=== PATIENT | male | born 1975 | race Caucasian/White ===

== ENCOUNTER → 2021-12-30 | Outpatient (CLI) | payer BC ==
--- NOTE | 2021-12-31 08:22 | CT ---
EXAMINATION TYPE: CT chest w con DATE OF EXAM: 12/30/2021 COMPARISON: None available HISTORY: Pleural scarring, former smoker CT DLP: 254 mGycm Automated exposure control for dose reduction was used. TECHNIQUE: CT scan of the chest is performed with IV Contrast, patient injected with 100 mL of Isovue 300. FINDINGS: 3 mm nodule is seen along the anterior-inferior aspect of the right transverse fissure. Unremarkable lungs otherwise with no definite other nodule, lesion, consolidation or calcification. Patent central airways. No pleural or pericardial effusion. No gross cardiomegaly. Unremarkable major mediastinal arteries. N o pathologically enlarged lymph nodes in the chest. Unremarkable upper abdomen. No aggressive bone le apple. IMPRESSION: 3 mm nodule along the right transverse fissure, likely benign however considering high risk patient, optional follow-up CT scan in 12 months should be considered.
== END | disposition home or self-care (01) ==
LOC: RADCTMAIN 17:52
PROVIDERS: ATTEND Family Medicine
DX: R91.1 Solitary pulmonary nodule (principal); Z87.891 Personal history of nicotine dependence
CPT/HCPCS: 71260; Q9967